=== PATIENT | female | born 1995 | race Two or more races ===

== ENCOUNTER 2025-01-30 00:08 | Emergency (ER) | payer MEDICAID, SELFPAY ==
[2025-01-30 00:09] VITALS: BMI 25.7
[2025-01-30 00:19] VITALS: BP 146/84; PULSE 87; RESP 19; TEMP 37.1; O2SAT 99
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
[2025-01-30 02:53] LABS: HCG Qualitative,Urine Negative
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
[2025-01-30] MEDS: KETOROLAC INJ 60 MG/2 ML VIAL 30 MG IM (04:14)
[2025-01-30 04:20] VITALS: BP 115/82; PULSE 72; RESP 18; TEMP 36.9; O2SAT 98
== END 2025-01-30 06:25 | disposition home or self-care (01) ==
PROVIDERS: Physician Assistant; Emergency Provider Emergency Medicine
DX: S29.012A Strain of muscle and tendon of back wall of thorax, initial encounter (principal); S16.1XXA Strain of muscle, fascia and tendon at neck level, initial encounter; S39.012A Strain of muscle, fascia and tendon of lower back, initial encounter; V89.9XXA Person injured in unspecified vehicle accident, initial encounter
CPT/HCPCS: 72125; 72128; 72131; 81025; 96372; 99283; J1885